=== PATIENT | male | born 1955 | race Caucasian/White ===

== ENCOUNTER 2016-07-08 09:55 | Outpatient (CLI) | payer BC | END 2016-07-08 09:56 | disposition home or self-care (01) | DX: R97.20 Elevated prostate specific antigen [PSA] (principal) ==

== ENCOUNTER 2016-10-05 08:02 | Outpatient (CLI) | payer BC | END 2016-10-05 08:03 | disposition home or self-care (01) | DX: E78.2 Mixed hyperlipidemia (principal); Z79.899 Other long term (current) drug therapy ==

== ENCOUNTER 2016-12-28 08:28 | Outpatient (CLI) | payer BC ==
[2016-12-28 10:55] LABS: PSA FREE 0.39 ng/mL (0.16-2.81)
[2016-12-28 10:56] LABS: PSA TOTAL 3.01 ng/mL (0.000-2.000)
== END 2016-12-28 08:29 | disposition home or self-care (01) ==
LOC: LAB.F 08:28
PROVIDERS: ATTEND Internal Medicine
DX: R97.20 Elevated prostate specific antigen [PSA] (principal); E78.2 Mixed hyperlipidemia
CPT/HCPCS: 36415; 84154

== ENCOUNTER 2017-05-20 07:45 | Outpatient (CLI) | payer BC ==
[2017-05-20 11:48] LABS: CHOL/HDL RATIO 4.3 (<5.0); CHOLESTEROL 225 mg/dL; HDL CHOLESTEROL 52 mg/dL; LDL CHOLESTEROL,CALCULATED 143 mg/dL; LDL/HDL RATIO 2.8 (<3.6); VLDL CHOLESTEROL 30 mg/dL
== END 2017-05-20 07:46 | disposition home or self-care (01) ==
LOC: LAB.F 07:45
PROVIDERS: ATTEND Internal Medicine
DX: E78.5 Hyperlipidemia, unspecified (principal); R97.20 Elevated prostate specific antigen [PSA]
CPT/HCPCS: 36415; 80061; 84153

== ENCOUNTER 2017-06-14 09:22 | Outpatient (CLI) | payer OTHER ==
[2017-06-14 18:53] LABS: PSA FREE 0.38 ng/mL (0.16-2.81)
[2017-06-14 18:54] LABS: PSA TOTAL 3.37 ng/mL (0.000-2.000)
== END 2017-06-14 09:23 | disposition home or self-care (01) ==
LOC: LAB.F 09:22
PROVIDERS: ATTEND Internal Medicine
DX: Z12.5 Encounter for screening for malignant neoplasm of prostate (principal)
CPT/HCPCS: 36415; 81599; 84154

== ENCOUNTER 2017-10-10 06:17 | Outpatient (CLI) | payer OTHER ==
[2017-10-10] MEDS ORDERED: IOPAMIDOL-300 100 ML VIAL ONE (07:06)
[2017-10-10] MEDS ORDERED: IOPAMIDOL-300 50 ML VIAL ONE (07:06)
[2017-10-10] MEDS ORDERED: IOPAMIDOL-300 100 ML VIAL IVP ONE (07:43)
[2017-10-10] MEDS ORDERED: IOPAMIDOL-300 50 ML VIAL PO ONE (07:43)
--- NOTE | 2017-10-10 11:41 | CT Report ---
CT ABDOMEN AND PELVIS WITH CONTRAST: 10/10/2017 CLINICAL INDICATION: Left lower quadrant pain. TECHNIQUE: Axial CT images of the abdomen and pelvis were obtained with 100 mL Isovue 300 intravenously as well as oral contrast. COMPARISON: No previous CT is available for comparison. FINDINGS: Limited evaluation of the lung bases demonstrates minimal atelectasis. ABDOMEN: The liver, spleen, pancreas, kidneys and adrenal glands are unremarkable. No bowel dilatation, free gas, or free fluid is present. The gallbladder is nondilated. No abdominal adenopathy is seen. PELVIS: The pelvic organs appear unremarkable. The appendix is seen in the right lower quadrant, and is normal in caliber. No pelvic adenopathy or free fluid is present. Osseous structures demonstrate degenerative changes. There is no evidence of an abdominal wall hernia. Specifically, no left spigelian hernia is identified. IMPRESSION: NO EVIDENT ETIOLOGY FOR THE PATIENT'S LEFT LOWER QUADRANT PAIN. CT DOSE REDUCTION STATEMENT In accordance with CT protocol optimization, one or more of the following dose reduction techniques were utilized for this exam: automated exposure control, adjustment of mA and/or KV based on patient size, or use of iterative reconstructive technique. TD: 10/10/2017 11:24
== END 2017-10-10 06:18 | disposition home or self-care (01) ==
LOC: LAB 06:17 → DI 06:18
PROVIDERS: ATTEND Surgery
DX: R10.32 Left lower quadrant pain (principal)
CPT/HCPCS: 36415; 74177; 82565; Q9967

== ENCOUNTER 2017-11-02 07:30 | Outpatient (CLI) | payer OTHER ==
[2017-11-02 11:47] LABS: ALBUMIN/GLOBULIN RATIO 1.2 (1.0-2.2); ALKALINE PHOSPHATASE 47 IU/L (42-121); ALT ALANINE AMINOTRANSFERASE 24 IU/L (10-60); AST ASPARTATE AMINOTRANSFERASE 22 IU/L (10-42); BILIRUBIN,TOTAL 0.9 mg/dL (0.2-1.0); BUN - BLOOD UREA NITROGEN 16 mg/dL (6-20); CALCIUM 8.8 mg/dL (8.5-10.3); CARBON DIOXIDE - CO2 29 mmol/L (21-32); CHLORIDE 100 mmol/L (101-111); CHOL/HDL RATIO 2.6 (<5.0); CHOLESTEROL 174 mg/dL; GFR - MDRD 75 (>89); GLUCOSE 96 mg/dL (70-100); HDL CHOLESTEROL 68 mg/dL; LDL CHOLESTEROL,CALCULATED 94 mg/dL; LDL/HDL RATIO 1.4 (<3.6); SODIUM 135 mmol/L (135-145); TOTAL PROTEIN 7.3 g/dL (6.7-8.2); VLDL CHOLESTEROL 12 mg/dL
== END 2017-11-02 07:31 | disposition home or self-care (01) ==
LOC: LAB.F 07:30
PROVIDERS: ATTEND Internal Medicine
DX: E78.5 Hyperlipidemia, unspecified (principal)
CPT/HCPCS: 36415; 80053; 80061; 83721

== ENCOUNTER 2017-11-09 08:00 | Outpatient (CLI) | payer OTHER | END 2017-11-09 08:01 | disposition home or self-care (01) | LOC: LAB.R 08:00 | PROVIDERS: ATTEND Internal Medicine | DX: C61 Malignant neoplasm of prostate (principal) | CPT/HCPCS: 84153 ==

== ENCOUNTER 2018-04-17 15:09 | Outpatient (CLI) | payer OTHER | END 2018-04-17 15:10 | disposition home or self-care (01) | LOC: LAB.F 15:09 | PROVIDERS: ATTEND Internal Medicine | DX: C61 Malignant neoplasm of prostate (principal) | CPT/HCPCS: 36415; 84153 ==

== ENCOUNTER 2018-10-31 10:06 | Outpatient (CLI) | payer MEDICARE ==
[2018-10-31 12:05] LABS: PSA FREE 0.36 ng/mL (0.16-2.81)
[2018-10-31 12:06] LABS: PSA TOTAL 4.1 ng/mL (0.000-2.000)
== END 2018-10-31 10:07 | disposition home or self-care (01) ==
LOC: LAB 10:06
PROVIDERS: ATTEND Internal Medicine
DX: C61 Malignant neoplasm of prostate (principal)
CPT/HCPCS: 36415; 84153; 84154

== ENCOUNTER 2019-01-01 10:14 | Outpatient (CLI) | payer MEDICARE ==
[2019-01-01 11:10] LABS: CALCIUM 9.6 mg/dL (8.5-10.3)
== END 2019-01-01 10:15 | disposition home or self-care (01) ==
LOC: LAB 10:14
PROVIDERS: ATTEND Specialist
DX: C61 Malignant neoplasm of prostate (principal)
CPT/HCPCS: 36415; 80048; 84153

== ENCOUNTER 2019-04-03 09:19 | Outpatient (CLI) | payer MEDICARE | END 2019-04-03 09:20 | disposition home or self-care (01) | LOC: LAB 09:19 | PROVIDERS: ATTEND Specialist | DX: C61 Malignant neoplasm of prostate (principal) | CPT/HCPCS: 36415; 84153 ==

== ENCOUNTER 2019-06-06 08:01 | Outpatient (CLI) | payer MEDICARE ==
[2019-06-06 08:35] LABS: ALBUMIN 4.3 g/dL (3.2-5.5); ALBUMIN/GLOBULIN RATIO 1.4 (1.0-2.2); ALKALINE PHOSPHATASE 55 IU/L (42-121); ALT ALANINE AMINOTRANSFERASE 33 IU/L (10-60); AST ASPARTATE AMINOTRANSFERASE 24 IU/L (10-42); BILIRUBIN,TOTAL 0.9 mg/dL (0.2-1.0); BUN - BLOOD UREA NITROGEN 16 mg/dL (6-20); CARBON DIOXIDE - CO2 28 mmol/L (21-32); CHLORIDE 102 mmol/L (101-111); CHOL/HDL RATIO 3.2 (<5.0); CHOLESTEROL 182 mg/dL; GFR - MDRD 75 (>89); GLUCOSE 112 mg/dL (70-100); HDL CHOLESTEROL 57 mg/dL; LDL CHOLESTEROL,CALCULATED 104 mg/dL; LDL/HDL RATIO 1.8 (<3.6); SODIUM 139 mmol/L (135-145); TOTAL PROTEIN 7.3 g/dL (6.7-8.2); VLDL CHOLESTEROL 21 mg/dL
[2019-06-06 09:21] LABS: PSA FREE 0.61 ng/mL (0.16-2.81)
[2019-06-06 09:22] LABS: PSA TOTAL 0.04 ng/mL (0.000-2.000)
== END 2019-06-06 08:02 | disposition home or self-care (01) ==
LOC: LAB 08:01
PROVIDERS: ATTEND Internal Medicine
DX: E78.5 Hyperlipidemia, unspecified (principal); C61 Malignant neoplasm of prostate
CPT/HCPCS: 36415; 80053; 80061; 83721; 84153; 84154

== ENCOUNTER 2019-07-10 11:15 | Outpatient (CLI) | payer MEDICARE | END 2019-07-10 11:16 | disposition home or self-care (01) | LOC: LAB 11:15 | PROVIDERS: ATTEND Specialist | DX: C61 Malignant neoplasm of prostate (principal) | CPT/HCPCS: 36415; 84153 ==

== ENCOUNTER 2019-08-20 13:07 | Outpatient (CLI) | payer MEDICARE | END 2019-08-20 13:08 | disposition home or self-care (01) | LOC: LAB 13:07 | PROVIDERS: ATTEND Specialist | DX: C61 Malignant neoplasm of prostate (principal) | CPT/HCPCS: 36415; 84153 ==

== ENCOUNTER 2019-09-18 15:49 | Outpatient (CLI) | payer MEDICARE ==
[2019-09-18 16:13] LABS: CREATININE 0.8 mg/dL (0.6-1.2)
== END 2019-09-18 15:50 | disposition home or self-care (01) ==
LOC: LAB 15:49
PROVIDERS: ATTEND Radiology Radiation Oncology
DX: C61 Malignant neoplasm of prostate (principal)
CPT/HCPCS: 36415; 82565

== ENCOUNTER 2019-10-19 08:44 | Outpatient (CLI) | payer MEDICARE | END 2019-10-19 08:45 | disposition home or self-care (01) | LOC: LAB 08:44 | PROVIDERS: ATTEND Specialist | DX: C61 Malignant neoplasm of prostate (principal) | CPT/HCPCS: 36415; 84153 ==

== ENCOUNTER 2020-01-06 08:11 | Emergency (ER) | payer MEDICARE ==
[2020-01-06] MEDS ORDERED: KETOROLAC 30 MG/ML VIAL IVP STA (08:41)
[2020-01-06] MEDS ORDERED: SODIUM CHLORIDE 0.9% 1,000 ML IV STA (08:41)
--- NOTE | 2020-01-06 08:45 | ED Physician Documentation ---
PD HPI ABD PAIN - Stated complaint Stated Complaint: ABD PX - Chief complaint Chief Complaint: Abd Pain - History obtained from History obtained from: Patient - History of Present Illness Timing - onset: Enter time (299), Today Timing - duration: Hours Timing - details: Gradual onset, Still present Pain level max: 7 Pain level now: 4 Quality: Sharp, Pain Location: RUQ Radiation: Right flank Improved by: Other (nothing) Worsened by: Other (nothing) Associated symptoms: Nausea, Vomiting. No: Fever Similar symptoms before: Has not had sx before Recently seen: Not recently seen - Additional information Additional information: Previously well 64-year-old male was awake at 3 AM when he began to develop gradual onset of right upper quadrant abdominal pain. He does not recall any modifying factors to this he did not have any increase in pain with deep breathing or moving and he was not able to control his pain. He eventually made his way to the emergency department this morning but has some improvement from a 7 down to a 4. He does have persistence of pain. Review of Systems Constitutional: denies: Fever, Chills, Myalgias, Fatigue Eyes: denies: Decreased vision Ears: denies: Ear pain Nose: denies: Rhinorrhea / runny nose, Congestion Throat: denies: Sore throat Cardiac: denies: Chest pain / pressure, Palpitations, Pedal edema, Calf pain Respiratory: denies: Dyspnea, Cough GI: reports: Abdominal Pain, Nausea, Vomiting. denies: Abdominal Swelling, Constipation, Diarrhea, Bloody / black stool : denies: Dysuria, Frequency Skin: denies: Rash Musculoskeletal: denies: Neck pain, Back pain, Extremity pain Neurologic: denies: Generalized weakness, Focal weakness, Numbness PD PAST MEDICAL HISTORY - Past Medical History Past Medical History: Yes Cardiovascular: None Respiratory: None Endocrine/Autoimmune: None GI: None : None HEENT: None Psych: None Musculoskeletal: None Derm: None - Past Surgical History Past Surgical History: Yes General: Colonoscopy Ortho: Arthroscopic surgery - Present Medications Home Medications: Ambulatory Orders Medication Instructions Recorded Confirmed Red Yeast Rice 600 mg PO DAILY 01/10/13 03/08/16 Ubidecarenone [Co Q-10] 50 mg PO DAILY 01/10/13 03/08/16 Aspirin [Aspir-Low] 1 DAILY 03/09/16 - Allergies Allergies/Adverse Reactions: Allergies Allergy/AdvReac Type Severity Reaction Status Date / Time No Known Drug Allergies Allergy Verified 01/09/13 14:26 - Social History Does the pt smoke?: No Smoking Status: Never smoker Does the pt drink ETOH?: Yes ETOH Use: Wine, Beer Does the pt have substance abuse?: No - Immunizations Immunizations are current?: Yes PD ED PE NORMAL - Vitals Vital signs reviewed: Yes (hypertensive ) - General General: Alert and oriented X 3, No acute distress, Well developed/nourished - HEENT HEENT: Atraumatic, PERRL, EOMI - Neck Neck: Supple, no meningeal sign, No bony TTP - Cardiac Cardiac: RRR, No murmur - Respiratory Respiratory: No respiratory distress, Clear bilaterally - Abdomen Abdomen: Normal bowel sounds, Soft, Non tender, Non distended, No organomegaly - Back Back: No CVA TTP, No spinal TTP - Derm Derm: Normal color, Warm and dry, No rash - Extremities Extremities: No deformity, No edema - Neuro Neuro: Alert and oriented X 3, 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, No motor deficit, No sensory deficit, Normal speech Eye Opening: Spontaneous Motor: Obeys Commands Verbal: Oriented GCS Score: 15 - Psych Psych: Normal mood, Normal affect Results - Vitals Vitals: Vital Signs - 24 hr 01/06/20 01/06/20 01/06/20 08:16 08:26 09:24 Temperature 36.0 C L 36.0 C L Heart Rate 52 L 52 L 58 L Respiratory 16 16 16 Rate Blood Pressure 134/69 H 134/67 H 124/66 O2 Saturation 100 99 100 01/06/20 10:07 Temperature Heart Rate 76 Respiratory 16 Rate Blood Pressure 144/70 H O2 Saturation 99 Oxygen O2 Source Room air - Labs Labs: Laboratory Tests 01/06/20 01/06/20 01/06/20 08:45 08:45 10:05 WBC 7.9 RBC 4.30 L Hgb 13.5 L Hct 39.1 L MCV 90.9 MCH 31.4 H MCHC 34.5 RDW 12.7 Plt Count 176 MPV 9.2 Neut # (Auto) 6.8 H Lymph # (Auto) 0.5 L [place] # (Auto) 0.5 Eos # (Auto) 0.0 Baso # (Auto) 0.0 Absolute Nucleated RBC 0.00 Nucleated RBC % 0.0 Sodium 139 Potassium 4.0 Chloride 106 Carbon Dioxide 24 Anion Gap 9.0 BUN 17 Creatinine 1.0 Estimated GFR (MDRD) 75 L Glucose 161 H Calcium 8.7 Total Bilirubin 0.7 AST 28 ALT 31 Alkaline Phosphatase 44 Total Protein 6.7 Albumin 4.0 Globulin 2.7 Albumin/Globulin Ratio 1.5 Lipase 32 Urine Color YELLOW Urine Clarity CLEAR Urine pH 7.5 Ur Specific [place] 1.020 Urine Protein NEGATIVE Urine Glucose (UA) NEGATIVE Urine Ketones NEGATIVE Urine Occult Blood NEGATIVE Urine Nitrite NEGATIVE Urine Bilirubin NEGATIVE Urine Urobilinogen 0.2 (NORMAL) Ur Leukocyte Esterase NEGATIVE Ur Microscopic Review NOT INDICATED Urine Culture Comments NOT INDICATED - Rads (name of study) CT ab/pel Radiology: Prelim report reviewed (Impression: No stones or hydronephrosis can be seen. Within the mid abdomen on the left several loops of prominent small bowel can be seen, with fluid seen along the leaves of the mesentery. Enteritis is suspected incidental note is made of small hiatal hernia prostatectomy fluid containing right ), EMP read indepedently (inguinal hernia), See rad report Procedures - Bedside sono Bedside sono by EMP: With use of bedside ultrasound the right upper quadrant is imaged there is no sonographic tenderness to the gallbladder the gallbladder is not distended there is no thickened wall and no pericholecystic fluid there does appear to be shadowing stone. The right kidney is imaged it is sonographically nontender there is evidence of mild hydronephrosis. PD MEDICAL DECISION MAKING - ED course Complexity details: reviewed old records, reviewed results, re-evaluated patient, considered differential, d/w patient ED course: 64-year-old male with a history of prostate cancer who is finished his radiation therapy in November of this year has now developed right upper quadrant abdominal pain and I am impressed with the fact that he has persistent pain and no tenderness to the right upper quadrant on exam. I did find shadowing stone in the gallbladder on bedside exam but I am doubting the diagnosis of cholelithiasis as the reason for this patient's pain. A CT scan of the abdomen pelvis is obtained to rule out kidney stone on the right side. There is no stone and formal gb ultrasound is performed. Departure - Departure Disposition: 01 Home, Self Care Clinical Impression: Abdominal pain Qualifiers: Abdominal location: right upper quadrant Qualified Code(s): R10.11 - Right upper quadrant pain Condition: Stable Instructions: ED Abdominal Pain Unkn Cause Male Follow-Up: Tye Harden MD [Primary Care Provider] -
[2020-01-06 09:06] LABS: BASOPHILS % (AUTO) 0.4 %; EOSINOPHILS % (AUTO) 0.4 %; HGB - HEMOGLOBIN 13.5 g/dL (14.0-18.0); LYMPHOCYTES # (AUTO) 0.5 10^3/uL (1.5-3.5); LYMPHOCYTES % (AUTO) 6.5 %; MEAN CORPUSCULAR HEMOGLOBIN 31.4 pg (27.0-31.0); MEAN CORPUSCULAR HGB CONC 34.5 g/dL (32.0-36.0); MEAN CORPUSCULAR VOLUME 90.9 fL (80.0-94.0); MEAN PLATELET VOLUME 9.2 fL (7.4-11.4); MONOCYTES # (AUTO) 0.5 10^3/uL (0.0-1.0); MONOCYTES % (AUTO) 6.2 %; NEUTROPHILS # (AUTO) 6.8 10^3/uL (1.5-6.6); NEUTROPHILS % (AUTO) 86.1 %; PLT - PLATELET COUNT 176 10^3/uL (130-450); RED CELL DISTRIBUTION WIDTH 12.7 % (12.0-15.0); WHITE BLOOD COUNT 7.9 x10^3/uL (4.8-10.8)
[2020-01-06 09:17] LABS: ALBUMIN/GLOBULIN RATIO 1.5 (1.0-2.2); BILIRUBIN,TOTAL 0.7 mg/dL (0.2-1.0); CALCIUM 8.7 mg/dL (8.5-10.3); TOTAL PROTEIN 6.7 g/dL (6.7-8.2)
--- NOTE | 2020-01-06 09:20 | CT Report ---
PROCEDURE: Abdomen/Pelvis WO INDICATIONS: flank pain, kidney stone suspected TECHNIQUE: Noncontrast 5 mm thick sections acquired from the diaphragms to the symphysis. 5 mm coronal and sagi ttal reformats were then performed. For radiation dose reduction, the following was used: automated exposure control, adjustment of mA and/or kV according to patient size. COMPARISON: 10/10/2017 FINDINGS: Image quality: Excellent. ABDOMEN: Lung bases: Lung bases are clear. Heart size is normal. A small hiatal hernia is incidentally note d. Solid organs: Liver and spleen are normal in size. Gallbladder wall does not appear thickened. P ancreas is normal in contours. No adrenal nodules. Kidneys are normal in size, without hydronephros is or nephrolithiasis. Peritoneum and bowel: Mild prominence of small bowel can be seen within the midabdomen on the left, w ith fluid-filled loops of measure up to 2.9 cm. Fluid is seen along the leaves of mesentery within th is region. No significant free fluid is seen. No free air is seen. No significant colonic abnormality is seen. Nodes and vessels: No retroperitoneal or mesenteric adenopathy by size criteria. Aorta and inferior vena cava are normal in caliber. Miscellaneous: No ventral hernias. PELVIS: Genitourinary: Bladder wall thickness is normal. Prostatectomy changes are seen. Miscellaneous: No inguinal adenopathy. There is a fluid-containing right inguinal hernia. Bones: No suspicious bony lesions. No vertebral body compression fractures. Age-appropriate degen erative changes are seen. IMPRESSION: No stones or hydronephrosis can be seen. Within the mid abdomen on the left, several loops of prominent small bowel can be seen, with fluid s een along the leaves of the mesentery. Enteritis is suspected. Incidental note is made of: Small hiatal hernia Prostatectomy Fluid-containing right inguinal hernia Reviewed by: Ehsan Chirinos MD on 01/06/2020 8:19 AM [facility] Approved by: Ehsan Chirinos MD on 01/06/2020 8:19 AM [facility] Station ID: [id number]
[2020-01-06 10:42] LABS: BILIRUBIN,URINE NEGATIVE (NEGATIVE); GLUCOSE, URINE (UA) NEGATIVE (NEGATIVE); KETONES,URINE (UA) NEGATIVE (NEGATIVE); LEUKOCYTE ESTERASE, URINE NEGATIVE (NEGATIVE); NITRITE,URINE NEGATIVE (NEGATIVE); OCCULT BLOOD,URINE NEGATIVE (NEGATIVE); PH,URINE 7.5 PH (5.0-7.5); PROTEIN,URINE NEGATIVE (NEGATIVE); UROBILINOGEN,URINE 0.2 (NORMAL) E.U./dL (NORMAL)
[2020-01-06 10:46] LABS: CLARITY,URINE CLEAR (CLEAR)
[2020-01-06 10:59] VITALS: BP 137/80
--- NOTE | 2020-01-06 11:01 | Ultrasound Report ---
PROCEDURE: Abdomen Limited INDICATIONS: RUQ pain TECHNIQUE: Real-time focused scanning was performed of the abdomen, with image documentation. COMPARISON: Correlation is made with prior CT examinations 01/06/2028 and 10/10/2017 FINDINGS: The liver demonstrates normal size. The liver demonstrates increased echogenicity, which l imits ultrasound sensitivity for detection of masses. No gallstones or significant sludge can be seen. The gallbladder wall does not appear thickened. Ther e is no specific pericholecystic fluid. The sonographic Hernandez's sign is negative. No biliary ductal dilatation is seen. The common bile duct measures 3 mm. The visualized pancreas is within normal limits. The right kidney demonstrates normal length. There is mild cortical thinning observed within the righ t kidney. This study is limited by body habitus. IMPRESSION: The gallbladder demonstrates a normal sonographic appearance. No biliary dilatation is seen. Increased liver echogenicity is seen. This is nonspecific, yet it is most commonly attributed to fatt y infiltration. Note: Concordant preliminary findings given by the rn staffing upon the completion of the examination to Dr. Easton at 10:40 AM on 01/06/2020. Reviewed by: Ehsan Chirinos MD on 01/06/2020 10:00 AM [facility] Approved by: Ehsan Chirinos MD on 01/06/2020 10:00 AM [facility] Station ID: [id number]
== END 2020-01-06 11:06 | disposition home or self-care (01) ==
LOC: ED 08:11
DX: R10.11 Right upper quadrant pain (principal); K44.9 Diaphragmatic hernia without obstruction or gangrene; K40.90 Unilateral inguinal hernia, without obstruction or gangrene, not specified as recurrent; R03.0 Elevated blood-pressure reading, without diagnosis of hypertension; Z79.82 Long term (current) use of aspirin; Z85.46 Personal history of malignant neoplasm of prostate; Z90.79 Acquired absence of other genital organ(s)
CPT/HCPCS: 36415; 74176; 76705; 80053; 81001; 81003; 83690; 85025; 87086; 96360; 99284

== ENCOUNTER 2020-01-23 13:15 | Outpatient (CLI) | payer MEDICARE | END 2020-01-23 13:16 | disposition home or self-care (01) | LOC: LAB 13:15 | PROVIDERS: ATTEND Specialist | DX: N40.0 Benign prostatic hyperplasia without lower urinary tract symptoms (principal) | CPT/HCPCS: 36415; 84153 ==

== ENCOUNTER 2020-05-01 09:47 | Outpatient (CLI) | payer MEDICARE | END 2020-05-01 09:48 | disposition home or self-care (01) | LOC: LAB 09:47 | PROVIDERS: ATTEND Specialist | DX: R97.20 Elevated prostate specific antigen [PSA] (principal) | CPT/HCPCS: 36415; 84153 ==

== ENCOUNTER 2020-10-22 10:56 | Outpatient (CLI) | payer MEDICARE | END 2020-10-22 10:57 | disposition home or self-care (01) | LOC: LAB 10:56 | PROVIDERS: ATTEND Specialist | DX: N40.0 Benign prostatic hyperplasia without lower urinary tract symptoms (principal) | CPT/HCPCS: 36415; 84153 ==

== ENCOUNTER 2021-04-14 11:19 | Outpatient (CLI) | payer MEDICARE | END 2021-04-14 11:20 | disposition home or self-care (01) | LOC: LAB 11:19 | PROVIDERS: ATTEND Specialist | DX: C61 Malignant neoplasm of prostate (principal) | CPT/HCPCS: 36415; 84153 ==

== ENCOUNTER 2021-10-12 10:44 | Outpatient (CLI) | payer MEDICARE | END 2021-10-12 10:45 | disposition home or self-care (01) | LOC: LAB 10:44 | PROVIDERS: ATTEND Specialist | DX: R97.20 Elevated prostate specific antigen [PSA] (principal) | CPT/HCPCS: 36415; 84153 ==

== ENCOUNTER 2021-11-06 14:03 | Outpatient (CLI) | payer MEDICARE ==
[2021-11-06 20:25] LABS: BASOPHILS % (AUTO) 0.2 %; EOSINOPHILS # (AUTO) 0.1 10^3/uL (0.0-0.7); EOSINOPHILS % (AUTO) 2.7 %; HCT - HEMATOCRIT 41.5 % (42.0-52.0); HGB - HEMOGLOBIN 13.9 g/dL (14.0-18.0); LYMPHOCYTES # (AUTO) 0.8 10^3/uL (1.5-3.5); LYMPHOCYTES % (AUTO) 18.3 %; MEAN CORPUSCULAR HEMOGLOBIN 30.5 pg (27.0-31.0); MEAN CORPUSCULAR HGB CONC 33.5 g/dL (32.0-36.0); MEAN PLATELET VOLUME 10.7 fL (7.4-11.4); MONOCYTES # (AUTO) 0.3 10^3/uL (0.0-1.0); MONOCYTES % (AUTO) 6.8 %; NEUTROPHILS # (AUTO) 3.2 10^3/uL (1.5-6.6); NEUTROPHILS % (AUTO) 71.8 %; PLT - PLATELET COUNT 203 10^3/uL (130-450); RED BLOOD COUNT 4.56 10^6/uL (4.70-6.10); WHITE BLOOD COUNT 4.4 x10^3/uL (4.8-10.8)
[2021-11-06 21:27] LABS: ALBUMIN 4.4 g/dL (3.2-5.5); ALBUMIN/GLOBULIN RATIO 1.6 (1.0-2.2); ALKALINE PHOSPHATASE 46 IU/L (42-121); ALT ALANINE AMINOTRANSFERASE 22 IU/L (10-60); AST ASPARTATE AMINOTRANSFERASE 20 IU/L (10-42); BILIRUBIN,TOTAL 0.4 mg/dL (0.2-1.0); BUN - BLOOD UREA NITROGEN 19 mg/dL (6-20); CALCIUM 9.6 mg/dL (8.5-10.3); CARBON DIOXIDE - CO2 28 mmol/L (21-32); CHLORIDE 101 mmol/L (101-111); CHOL/HDL RATIO 4.4 (<5.0); CHOLESTEROL 251 mg/dL; CREATININE 1.1 mg/dL (0.6-1.2); GFR - MDRD 67 (>89); GLUCOSE 115 mg/dL (70-100); HDL CHOLESTEROL 57 mg/dL; LDL CHOLESTEROL,CALCULATED 129 mg/dL; LDL/HDL RATIO 2.3 (<3.6); POTASSIUM 4.1 mmol/L (3.5-5.0); SODIUM 140 mmol/L (135-145); TOTAL PROTEIN 7.2 g/dL (6.7-8.2); TRIGLYCERIDES 325 mg/dL; VLDL CHOLESTEROL 65 mg/dL
== END 2021-11-06 14:04 | disposition home or self-care (01) ==
LOC: LAB.S 14:03
PROVIDERS: ATTEND Internal Medicine
DX: E78.5 Hyperlipidemia, unspecified (principal); Z79.899 Other long term (current) drug therapy
CPT/HCPCS: 36415; 80053; 80061; 83721; 85025

== ENCOUNTER 2022-04-12 13:08 | Outpatient (CLI) | payer MEDICARE | END 2022-04-12 13:09 | disposition home or self-care (01) | LOC: LAB 13:08 | PROVIDERS: ATTEND Specialist | DX: C61 Malignant neoplasm of prostate (principal) | CPT/HCPCS: 36415; 84153 ==

== ENCOUNTER 2022-10-08 14:02 | Outpatient (CLI) | payer MEDICARE | END 2022-10-08 14:03 | disposition home or self-care (01) | LOC: LAB 14:02 | PROVIDERS: ATTEND Specialist | DX: C61 Malignant neoplasm of prostate (principal) | CPT/HCPCS: 36415; 84153 ==

== ENCOUNTER 2023-04-18 11:11 | Outpatient (CLI) | payer MEDICARE | END 2023-04-18 11:12 | disposition home or self-care (01) | LOC: LAB 11:11 | PROVIDERS: ATTEND Specialist | DX: N52.31 Erectile dysfunction following radical prostatectomy (principal); Z85.46 Personal history of malignant neoplasm of prostate | CPT/HCPCS: 36415; 84153 ==

== ENCOUNTER 2023-10-31 11:27 | Outpatient (CLI) | payer MEDICARE | END 2023-10-31 11:28 | disposition home or self-care (01) | LOC: LAB 11:27 | DX: C61 Malignant neoplasm of prostate (principal) | CPT/HCPCS: 36415; 84153 ==